=== PATIENT | female | born 1945 | race Caucasian/White ===

== ENCOUNTER 2017-11-19 08:03 | Day surgery (SDC) | payer OTHER ==
--- NOTE | 2017-11-12 17:17 | RAD REPORT ---
EXAM DESCRIPTION: RADOP - Outpt Chest Pa/Lat (2 Views) - 11/12/2017 5:10 pm CLINICAL HISTORY: Hypertension COMPARISON: 07/22/2017 FINDINGS: The lungs are clear. The heart is mildly prominent size. No displaced fractures. Sternotom y wires noted. Mild thoracic dextroscoliosis. IMPRESSION: No acute or concerning finding suspected.
[2017-11-12 17:43] LABS: Absolute Monocytes 0.7 K/uL (0.1-1.3); Absolute Neutrophil 4.9 K/uL (1.8-8.0); Basophils % 0.9 % (0-1.3); Eosinophils % 1.9 % (0-4.4); Lymphocytes % 25.4 % (15.3-44.8); MCH 30.5 pg (27.0-35.0); MCV 91.4 fL (80-100); MPV 8.2 fL (7.6-11.3); Monocytes % 8.8 % (3.3-12.3); RBC Red Blood Cell Count 4.26 M/uL (3.86-4.86)
[2017-11-12 18:13] LABS: Potassium 3.6 mEq/L (3.6-5.0)
--- NOTE | 2017-11-13 08:28 | EKG ---
Test Date: 2017-11-12 Test Time: 16:59:26 [employer]: PENNIE MEASUREMENT RESULTS: Intervals: Rate: 71 FL: 176 QRSD: 92 QT: 416 QTc: 452 Spencer: P: 69 FL: 176 QRS: 23 T: 74 INTERPRETIVE STATEMENTS: Normal sinus rhythm Nonspecific T wave abnormality Abnormal ECG Compared to ECG 07/22/2017 01:20:28 T-wave abnormality now present ST (T wave) deviation no longer present Electronically Signed On 11-13-17 08:26:22 CDT by Asad Acevedo
[2017-11-19] MEDS ORDERED: Ringers Lactate 1,000 ML IV ONE (08:49)
[2017-11-19] MEDS ORDERED: CEFAZOLIN/SWI 1gm 1 GM/10 ML SYR ONE (08:50)
[2017-11-19] MEDS ORDERED: LIDOCAINE 1% MPF 5 ML VIAL ONE (09:01)
[2017-11-19] MEDS ORDERED: FENTANYL CITR 100 MCG/2 ML ONE ×2 (09:01→10:29)
[2017-11-19] MEDS ORDERED: PROPOFOL 200 MG/20 ML VIAL IV ONE (09:01)
[2017-11-19] MEDS ORDERED: EPHEDRINE SULF 50 MG/5 ML SYR ONE (09:20)
[2017-11-19] MEDS ORDERED: KETOROLAC 30 MG/ML INJ ONE (09:29)
[2017-11-19] MEDS ORDERED: ONDANSETRON 4 MG/2 ML VIAL ONE (09:29)
[2017-11-19] MEDS ORDERED: TRAMADOL HCL 50 MG TAB ONE (11:47)
--- NOTE | 2017-11-19 14:51 | P.BOP ---
Preoperative diagnosis: tender right inguinal hernia and incarcerated umbilical hernia Postoperative diagnosis: same Primary procedure: 1. Open repair of tender right inguinal hernia with mesh Secondary procedure: 2. Open repair of tender incarcerated umbilical hernia Estimated blood loss: <10cc Specimen: hernia sac umbilical Anesthesia: General Complications: None Implants: medium mesh plug and sheet Transferred to: Recovery Room Condition: Good
--- NOTE | 2017-11-20 01:52 | DS ---
Date of Discharge: 11/19/2017 Diagnoses: Tender right inguinal hernia and incarcerated umbilical hernia. Procedures: Open repair of tender right inguinal hernia with mesh and open repair of tender incarcer ated umbilical hernia. Disposition: Home. Activity: As tolerated. No heavy lifting. Followup: Follow up in my office in 1 week. Call for appointment at [phone]. Keep area dry for 48 hours, then may shower. Cold compress over the right inguinal region for 24 hours. Medication: Include Ultracet q.4 hours p.r.n. pain. JUAN JOSE/FEDERICO Voice ID: [id number] Report ID: [id number]
--- NOTE | 2017-11-20 02:52 | OP ---
Date of Procedure: 11/19/2017 Surgeon: Abrahan Martell MD Preoperative Diagnoses: Tender right inguinal hernia and incarcerated umbilical hernia. Postoperative Diagnoses: Tender right inguinal hernia and incarcerated umbilical hernia. Procedures: 1.Open repair of tender right inguinal hernia with mesh. 2.Open repair of tender incarcerated umbilical hernia. Specimen: Umbilical hernia sac. Findings: As above. Anesthesia: General plus local. Implant: A medium mesh plug and sheath. Indications: This is the case of a 72-year-old patient with 2 hernias, 2 of them tender, 1 of them i ncarcerated with benefits, alternatives, and risks of repair fully explained to the patient which inc lude but are not limited to infection, bleeding, damage to adjacent structures, anesthesia complicati on, recurrence, NE, and even . She also understands this may not relieve any symptoms. She nilam ht need more than one surgical intervention. She understand also the use of mesh, different alternat lorraine of that and also the chance of chronic pain or numbness. She understood and signed a consent. Description Of Procedure: The patient was brought to the operating room, placed in supine position. Anesthesia was done without complication. A time-out was called. The abdomen and inguinal regions were prepped and draped in a sterile fashion. Local anesthesia was applied over the area. First we repaired the right inguinal hernia. We made an incision in that region prior to Maddi's fascia unti l we find external oblique aponeurosis that we opened in the direction of its fibers. We identified the ilioinguinal nerve and iliohypogastric nerve and protected behind external oblique aponeurosis. We noticed a direct defect. The hernia sac was imbricated and kept inside with the help of a mesh pl ug and VersaTack fixation. Mesh sheet was placed in the floor of the canal to reinforce that 1st one and secured in place with VersaTack to the pubic tubercle, shelving edge of the inguinal ligament, t ransversalis fascia. Then, the ilioinguinal nerve and iliohypogastric nerve brought back to the ingu inal canal. The superficial inguinal ring was reconstructed and external oblique aponeurosis was raudel sed making sure the nerves are not including on the suture line. The area was irrigated, no bleeding and then we closed Maddi's fascia with 3-0 chromic and skin with lotus. Sponge count and instrum ent counts were correct. The umbilical hernia was fixed using another incision in the periumbilical region. Incision was carried down to fascia. We noted an umbilical hernia present. We opened the h ernia sac, found incarcerated omentum that was carefully reduced into the abdominal cavity. The ebony ia sac was removed. The fascial edges were cleaned and then we proceeded to close the area with #1 P rolene in a [id number] fashion multiple times. The patient tolerated each procedure well. This was closed with 3-0 chromic and then lotus. Sponge count and instrument counts were correct. The patient tolerated the procedure well. The patient was sent to Recovery in stable condition. JUAN JOSE/FEDERICO Voice ID: [id number] Report ID: [id number]
== END 2017-11-19 11:50 | disposition home or self-care (01) ==
LOC: OR 08:03
PROVIDERS: ATTEND Surgery
PROC: 0WQF0ZZ Repair Abdominal Wall, Open Approach (ICD-10-PCS; 2017-11-19)
PROC: 0YU50JZ Supplement Right Inguinal Region with Synthetic Substitute, Open Approach (ICD-10-PCS; principal; 2017-11-19 09:15)
DX: K40.90 Unilateral inguinal hernia, without obstruction or gangrene, not specified as recurrent (principal); K42.0 Umbilical hernia with obstruction, without gangrene; I10 Essential (primary) hypertension; E78.00 Pure hypercholesterolemia, unspecified; Z88.6 Allergy status to analgesic agent; Z90.710 Acquired absence of both cervix and uterus; Z80.3 Family history of malignant neoplasm of breast; Z80.41 Family history of malignant neoplasm of ovary; Z80.8 Family history of malignant neoplasm of other organs or systems
CPT/HCPCS: 36415; 49505; 49587; 71046; 80048; 85025; 88305; 93005; J0690; J2405; J3010 ×2

== ENCOUNTER 2019-07-07 10:08 | Day surgery (SDC) | payer OTHER ==
[2019-07-07] MEDS ORDERED: Zoledronic Acid/Mannitol/Water 5 MG/100 ML INFUS.BOT IV ONE (10:15)
[2019-07-07 14:07] VITALS: BP 128/56; TEMP 97.3; O2SAT 98; BMI 24.0
== END 2019-07-07 12:00 | disposition home or self-care (01) ==
LOC: DS 10:08
PROVIDERS: ATTEND Family Medicine
DX: M81.0 Age-related osteoporosis without current pathological fracture (principal); J34.89 Other specified disorders of nose and nasal sinuses
CPT/HCPCS: 96365; J3489

== ENCOUNTER 2020-06-29 09:40 | Day surgery (SDC) | payer OTHER ==
[2020-06-29] MEDS ORDERED: Zoledronic Acid/Mannitol/Water 5 MG/100 ML INFUS.BOT IV ONE (10:00)
[2020-06-29 10:25] VITALS: BP 145/61; TEMP 97.2; O2SAT 99
[2020-06-29 16:34] VITALS: BMI 26.0
== END 2020-06-29 10:38 | disposition home or self-care (01) ==
LOC: DS 09:40
PROVIDERS: ATTEND Family Medicine
DX: M81.0 Age-related osteoporosis without current pathological fracture (principal); J34.89 Other specified disorders of nose and nasal sinuses
CPT/HCPCS: 96365; J3489

== ENCOUNTER 2021-06-30 10:28 | Day surgery (SDC) | payer OTHER ==
[2021-06-30] MEDS ORDERED: Zoledronic Acid/Mannitol/Water 5 MG/100 ML INFUS.BOT IV ONE (10:45)
[2021-06-30 12:03] VITALS: BP 120/68; TEMP 98.3; O2SAT 97; BMI 3648.8
== END 2021-06-30 11:40 | disposition home or self-care (01) ==
LOC: DS 10:28
PROVIDERS: ATTEND Family Medicine
DX: M81.0 Age-related osteoporosis without current pathological fracture (principal); J34.89 Other specified disorders of nose and nasal sinuses
CPT/HCPCS: 96365; J3489

== ENCOUNTER 2023-07-19 09:59 | Day surgery (SDC) | payer OTHER ==
[2023-07-19] MEDS ORDERED: Zoledronic Acid/Mannitol/Water 5 MG/100 ML INFUS.BOT IV ONE (10:30)
[2023-07-19 11:21] VITALS: BP 116/45; TEMP 97.5; O2SAT 98; BMI 24.5
== END 2023-07-19 11:00 | disposition home or self-care (01) ==
LOC: DS 09:59
PROVIDERS: ATTEND Family Medicine
DX: M81.0 Age-related osteoporosis without current pathological fracture (principal); J34.89 Other specified disorders of nose and nasal sinuses
CPT/HCPCS: 96365; J3489